=== PATIENT | male | born 1990 | race Hispanic/Latino ===

== ENCOUNTER 2020-06-12 08:18 | Day surgery (SDC) | payer OTHER ==
[2020-06-09 12:03] VITALS: BMI 22.8
[2020-06-12] MEDS ORDERED: Lidocaine 1% PF 5 ML VIAL ONE (09:21)
[2020-06-12] MEDS ORDERED: Midazolam HCl 2 mg/2 ml Vial ONE (09:21)
[2020-06-12] MEDS ORDERED: Fentanyl 100 MCG/2 ML VIAL ONE (09:21)
[2020-06-12] MEDS ORDERED: Sodium Bicarbonate 2.5 MEQ/5 ML VIAL ONE (09:21)
[2020-06-12 11:28] VITALS: BP 109/74; TEMP 97.5
== END 2020-06-12 11:15 | disposition home or self-care (01) ==
LOC: ULT 08:18
PROVIDERS: ATTEND Physician Assistant Medical
PROC: 0FB13ZX Excision of Right Lobe Liver, Percutaneous Approach, Diagnostic (ICD-10-PCS; principal; 2020-06-12)
DX: K73.9 Chronic hepatitis, unspecified (principal); E11.9 Type 2 diabetes mellitus without complications; F17.200 Nicotine dependence, unspecified, uncomplicated; Z79.84 Long term (current) use of oral hypoglycemic drugs
CPT/HCPCS: 47000; 76942; 88307; 88313; 88321; J2250; J3010

== ENCOUNTER 2021-12-31 08:33 | Outpatient (CLI) | payer OTHER | END 2021-12-31 08:34 | disposition home or self-care (01) | LOC: BICULT 08:33 | PROVIDERS: ATTEND Physician Assistant Medical | DX: K74.3 Primary biliary cirrhosis (principal); R74.8 Abnormal levels of other serum enzymes; K76.9 Liver disease, unspecified; R16.1 Splenomegaly, not elsewhere classified | CPT/HCPCS: 76705 ==